=== PATIENT | female | born 1975 | race Caucasian/White ===

== ENCOUNTER → 2017-02-21 | Outpatient (CLI) | payer BC ==
[~2017-02-21] MED LIST: FLEXERIL10 M1; FLEXERIL10 MG; HYCODAN60 ML 5MG/ PO; MEDROL4 MG/DOSE- PO; NAPROXEN PO; NEURONTIN; PREDNISONE PO; ROBAXIN PO; TAMIFLU75 M1 PO; ULTRAM PO; ZITHROMAX PO
--- NOTE | ~2017-02-21 | MY11 ---
[facility] A Service of [facility] RADIOLOGY TEXT RESULTS PATIENT: JAIRO ALVAREZ LOCATION: [facility] : 71 UNIT #: [id number] AGE: [address]: Lee Pugh MD SEX: F ORDER DR: [id number] [address] [id number] O MR#: [id number] Acc #: [id number] NAME: JAIRO ALVAREZ : 1975 SEX: F STUDY DATE/TIME: 02/21/2017 15:28 UNIT: [facility] ROOM: STUDY DESCRIPTION: MY Mammogram Screening Dig Chris Attending Physician: Lee Pugh M.D. Referring Physician: Lee Pugh M.D. Ordering Physician: Lee Pugh M.D. Primary Care Physician: Dylon Damon MEDICAL IMAGING REPORT This report is preliminary unless electronic signature is present. EXAM Bilateral digital screening mammogram with CAD, 02/21/17. INDICATION 41-year-old female for routine screening. No reported problems, no personal or family history of breast cancer. No surgeries. TECHNIQUE CC and MLO views of the breast were obtained and reviewed with FDA-approved CAD device and compared with 01/30/15, 06/21/08, 06/03/08. FINDINGS Breast parenchyma is heterogeneously dense. This degrades sensitivity as screening mammography. The pattern is unchanged. There is no new dominant nodule mass or suspicious clustered microcalcifications. IMPRESSION 1. Benign dense mammogram, 1 year followup recommended. Patients over the age of 40 are entered into a reminder system with target due date for the next mammogram. A result letter will also be sent to the patient. BIRADS: 2 Benign findings. Dictated by... Mikie Stone M.D. THIS IS AN ELECTRONICALLY VERIFIED REPORT Mikie Stone M.D. at 02/25/2017 11:52 AM JOSE/eliazar [facility] A Service of [facility] RADIOLOGY TEXT RESULTS PATIENT: JAIRO ALVAREZ LOCATION: [facility] : 71 UNIT #: [id number] AGE: [address]: Lee Pugh MD SEX: F ORDER DR: TD: 02/21/2017 22:33 JOB #: [id number] MEDICAL IMAGING REPORT Page 1 of 1
== END | disposition home or self-care (01) ==
LOC: SMAM 14:52
DX: Z12.31 Encounter for screening mammogram for malignant neoplasm of breast (principal)
CPT/HCPCS: G0202